=== PATIENT | female | born 1960 | race Asian ===

== ENCOUNTER 2022-10-11 19:40 | Emergency (ER) | payer BC ==
[~2022-10-11] VITALS: Ht 160 cm; Wt 67.1 kg
[2022-10-11] MEDS ORDERED: ONDANSETRON HCL/PF 4 MG/2 ML VIAL ONE (20:07)
[2022-10-11] MEDS ORDERED: ACETAMINOPHEN 325 MG TABLET ONE (20:08)
[2022-10-11] MEDS: ONDANSETRON HCL/PF 4 MG/2 ML VIAL IV ONE (20:10)
[2022-10-11] MEDS: ACETAMINOPHEN 325 MG TABLET PO ONE (20:33)
[2022-10-11] MEDS ORDERED: ONDA4TAB5 PO (21:45)
[2022-10-11] MEDS ORDERED: IBUP-1955 PO (21:45)
[2022-10-11] MEDS ORDERED: KETOROLAC TROMETHAMINE INJ 30 MG/ML VIAL IV ONE (22:00)
[2022-10-11 22:34] VITALS: BP 135/85; TEMP 98.4; O2SAT 97
== END 2022-10-11 21:55 | disposition home or self-care (01) ==
LOC: ER 19:50
DX: S06.0X0A Concussion without loss of consciousness, initial encounter (principal); S16.1XXA Strain of muscle, fascia and tendon at neck level, initial encounter; S29.012A Strain of muscle and tendon of back wall of thorax, initial encounter; I10 Essential (primary) hypertension; V89.2XXA Person injured in unspecified motor-vehicle accident, traffic, initial encounter; Y93.89 Activity, other specified; Y92.89 Other specified places as the place of occurrence of the external cause; Y99.8 Other external cause status
CPT/HCPCS: 99285; 72125; 96374; 71045; 70450; J2405